=== PATIENT | male | born 1935 | race Caucasian/White ===

== ENCOUNTER → 2019-05-04 | Outpatient (CLI) | payer MEDICARE, BC ==
[~2019-05-04] MED LIST: ACET325 PO; ALFU10 PO; CALCIUM CIT 311 EACH PO; CETI5 PO; CYCL10 PO; ELIQUIS5 MG PO; FLUTICASONE; FOLI1 PO; GABA300 PO; Gaviscon Foamt1 EACH PO; Glucosamine &1 EACH PO; LEVFLO500 PO; MAXZIDE PO; MELO7.5 PO; METHOTREXATE IV; METO25ER PO; METR500 PO; MOMENI; OMEPRAZOLE20 MG PO; ROPI.25 PO; SUCR1 PO; TAMS.4ER PO; THERA1 EACH PO; TUMS PO; VITAMIN D32000 UNI3 PO; [UNRECOGNIZED DRUG - OTHER] PO
[2019-05-07 14:53] LABS: Stool Occult Blood Guaiac 1 Neg (Neg)
== END | disposition home or self-care (01) ==
LOC: LAB SHORT 11:10 → LAB 11:10
PROVIDERS: Family Medicine
DX: Z12.11 Encounter for screening for malignant neoplasm of colon (principal)
CPT/HCPCS: 82270

== ENCOUNTER 2019-05-24 00:15 | Day surgery (SDC) | payer MEDICARE, BC ==
[~2019-05-24 00:15] MED LIST changes: -ALFU10 PO; -CALCIUM CIT 311 EACH PO; -CYCL10 PO; -ELIQUIS5 MG PO; -FLUTICASONE; -FOLI1 PO; -GABA300 PO; -Gaviscon Foamt1 EACH PO; -Glucosamine &1 EACH PO; -MAXZIDE PO; -METHOTREXATE IV; -METO25ER PO; -OMEPRAZOLE20 MG PO; -ROPI.25 PO; -SUCR1 PO; -THERA1 EACH PO; -VITAMIN D32000 UNI3 PO
[2019-05-24] MEDS ORDERED: SUCR1 PO (15:21)
[2019-05-24] MEDS ORDERED: Gaviscon Foamt1 EACH PO (15:21)
[2019-05-24] MEDS ORDERED: ALFU10 PO (15:22)
[2019-05-24] MEDS ORDERED: METO25ER PO (15:22)
[2019-05-24] MEDS ORDERED: GABA300 PO (15:23)
[2019-05-24] MEDS ORDERED: METHOTREXATE IV (15:34)
[2019-05-24] MEDS ORDERED: CYCL10 PO (15:35)
[2019-05-24] MEDS ORDERED: CALCIUM CIT 311 EACH PO (15:38)
[2019-05-24] MEDS ORDERED: MAXZIDE PO (15:38)
[2019-05-24] MEDS ORDERED: THERA1 EACH PO (15:39)
[2019-05-24] MEDS ORDERED: FOLI1 PO (15:39)
[2019-05-24] MEDS ORDERED: VITAMIN D32000 UNI3 PO (15:40)
[2019-05-24] MEDS ORDERED: Glucosamine &1 EACH PO (15:40)
[2019-05-24] MEDS ORDERED: ELIQUIS5 MG PO (15:41)
[2019-05-24] MEDS ORDERED: OMEPRAZOLE20 MG PO (15:41)
[2019-05-24] MEDS ORDERED: FLUTICASONE (15:42)
[2019-05-24] MEDS ORDERED: ROPI.25 PO (15:43)
== END 2019-05-24 22:55 | disposition home or self-care (01) ==
LOC: ATC 00:15
DX: D50.9 Iron deficiency anemia, unspecified (principal); E11.9 Type 2 diabetes mellitus without complications; Z87.891 Personal history of nicotine dependence; Z79.01 Long term (current) use of anticoagulants; Z79.899 Other long term (current) drug therapy
CPT/HCPCS: 96365; J2916

== ENCOUNTER 2019-05-25 14:30 | Day surgery (SDC) | payer MEDICARE, BC ==
[~2019-05-25 14:30] MED LIST changes: +ALFU10 PO; +CALCIUM CIT 311 EACH PO; +CYCL10 PO; +ELIQUIS5 MG PO; +FLUTICASONE; +FOLI1 PO; +GABA300 PO; +Gaviscon Foamt1 EACH PO; +Glucosamine &1 EACH PO; +MAXZIDE PO; +METHOTREXATE IV; +METO25ER PO; +OMEPRAZOLE20 MG PO; +ROPI.25 PO; +SUCR1 PO; +THERA1 EACH PO; +VITAMIN D32000 UNI3 PO
== END 2019-05-25 23:46 | disposition home or self-care (01) ==
LOC: ATC 14:30
PROC: 30243N1 Transfusion of Nonautologous Red Blood Cells into Central Vein, Percutaneous Approach (ICD-10-PCS; principal; 2019-05-25)
DX: D50.9 Iron deficiency anemia, unspecified (principal); E11.9 Type 2 diabetes mellitus without complications; I48.91 Unspecified atrial fibrillation; M81.0 Age-related osteoporosis without current pathological fracture; I51.9 Heart disease, unspecified; M19.90 Unspecified osteoarthritis, unspecified site; G47.33 Obstructive sleep apnea (adult) (pediatric); Z87.891 Personal history of nicotine dependence; Z79.01 Long term (current) use of anticoagulants; Z79.84 Long term (current) use of oral hypoglycemic drugs; Z79.899 Other long term (current) drug therapy; Z99.89 Dependence on other enabling machines and devices
CPT/HCPCS: 96365; J2916

== ENCOUNTER 2019-05-26 00:13 | Day surgery (SDC) | payer MEDICARE, BC | END 2019-05-26 15:30 | disposition home or self-care (01) | LOC: ATC 00:13 | PROC: 30243N1 Transfusion of Nonautologous Red Blood Cells into Central Vein, Percutaneous Approach (ICD-10-PCS; principal; 2019-05-26) | DX: D50.9 Iron deficiency anemia, unspecified (principal); E11.9 Type 2 diabetes mellitus without complications; I48.91 Unspecified atrial fibrillation; M81.0 Age-related osteoporosis without current pathological fracture; M06.9 Rheumatoid arthritis, unspecified; M19.90 Unspecified osteoarthritis, unspecified site; Z85.828 Personal history of other malignant neoplasm of skin; Z87.891 Personal history of nicotine dependence; Z79.01 Long term (current) use of anticoagulants; Z79.51 Long term (current) use of inhaled steroids; Z79.899 Other long term (current) drug therapy | CPT/HCPCS: 96365; J2916 ==

== ENCOUNTER 2019-05-27 00:22 | Day surgery (SDC) | payer MEDICARE, BC | END 2019-05-27 14:48 | disposition home or self-care (01) | LOC: ATC 00:22 | PROC: 30243N1 Transfusion of Nonautologous Red Blood Cells into Central Vein, Percutaneous Approach (ICD-10-PCS; principal; 2019-05-27) | DX: D50.9 Iron deficiency anemia, unspecified (principal); E11.9 Type 2 diabetes mellitus without complications; I48.91 Unspecified atrial fibrillation; M81.0 Age-related osteoporosis without current pathological fracture; M06.9 Rheumatoid arthritis, unspecified; Z79.01 Long term (current) use of anticoagulants; Z79.899 Other long term (current) drug therapy; Z90.49 Acquired absence of other specified parts of digestive tract; Z87.891 Personal history of nicotine dependence | CPT/HCPCS: 96365; J2916 ==

== ENCOUNTER 2019-05-28 00:53 | Day surgery (SDC) | payer MEDICARE, BC | END 2019-05-28 14:45 | disposition home or self-care (01) | LOC: ATC 00:53 | PROC: 30243N1 Transfusion of Nonautologous Red Blood Cells into Central Vein, Percutaneous Approach (ICD-10-PCS; principal; 2019-05-28) | DX: D50.9 Iron deficiency anemia, unspecified (principal); E11.9 Type 2 diabetes mellitus without complications; I48.91 Unspecified atrial fibrillation; M81.0 Age-related osteoporosis without current pathological fracture; M06.9 Rheumatoid arthritis, unspecified; Z79.01 Long term (current) use of anticoagulants; Z79.899 Other long term (current) drug therapy; Z90.49 Acquired absence of other specified parts of digestive tract; Z87.891 Personal history of nicotine dependence | CPT/HCPCS: 96365; J2916 ==

== ENCOUNTER 2019-05-29 00:07 | Day surgery (SDC) | payer MEDICARE, BC | END 2019-05-29 22:43 | disposition home or self-care (01) | LOC: ATC 00:07 | DX: D50.9 Iron deficiency anemia, unspecified (principal); E11.9 Type 2 diabetes mellitus without complications; I48.91 Unspecified atrial fibrillation; M81.0 Age-related osteoporosis without current pathological fracture; M06.9 Rheumatoid arthritis, unspecified; M19.90 Unspecified osteoarthritis, unspecified site; Z79.01 Long term (current) use of anticoagulants; Z79.51 Long term (current) use of inhaled steroids; Z79.899 Other long term (current) drug therapy; Z87.891 Personal history of nicotine dependence | CPT/HCPCS: J2916 ==